=== PATIENT | female | born 2000 | race Caucasian/White ===

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

== ENCOUNTER 2020-12-06 21:59 | Emergency (ER) | payer SELFPAY ==
[~2020-12-06] VITALS: Ht 177.8 cm; Wt 86.2 kg
== END 2020-12-06 22:30 | disposition home or self-care (01) ==
LOC: ER 22:17
DX: M79.671 Pain in right foot (principal); S93.601A Unspecified sprain of right foot, initial encounter
CPT/HCPCS: 99282